=== PATIENT | male | born 1950 | race Caucasian/White ===

== ENCOUNTER → 2017-12-30 | Outpatient (CLI) | payer OTHER, BC | LOC: BHFA 11:00 | PROVIDERS: ATTEND Internal Medicine Cardiovascular Disease | DX: R07.9 Chest pain, unspecified (principal) ==

== ENCOUNTER 2018-01-17 06:33 | Observation (INO) | payer OTHER, BC ==
[2018-01-17] MEDS ORDERED: NS 1,000 ML IV ONE (06:41)
[2018-01-17] MEDS ORDERED: diphenhydrAMINE 25 MG CAP PO ONE ×2 (06:41→07:10)
[2018-01-17] MEDS ORDERED: DIAZEPAM 5 MG TAB PO ONE (06:41)
[2018-01-17] MEDS ORDERED: FAMOTIDINE 20 MG TAB PO ONE (06:41)
[2018-01-17] MEDS ORDERED: ASPIRIN EC 325 MG TAB PO ONE ×2 (06:41→07:10)
[2018-01-17] MEDS ORDERED: FAMOTIDINE 20 MG TAB ONE (07:10)
[2018-01-17] MEDS ORDERED: DIAZEPAM 5 MG TAB ONE (07:11)
[2018-01-17 07:36] LABS: PLATELET COUNT 222 10^3/uL (150-400)
[2018-01-17 07:44] LABS: INR 0.98 (0.83-1.16); PROTIME(PATIENT) 13.2 SEC (12.0-15.0)
[2018-01-17] MEDS ORDERED: LIDOCAINE 1% 300 MG/30 ML SDV ONE (08:07)
[2018-01-17] MEDS ORDERED: IOPAMIDOL (ISOVUE-370) 150 ML BTL IV ONE (08:08)
[2018-01-17] MEDS ORDERED: fentaNYL 100 MCG/2 ML INJ ONE ×2 (08:08→09:50)
[2018-01-17] MEDS ORDERED: MIDAZOLAM 2 MG/2 ML VIAL ONE ×2 (08:08→09:51)
--- NOTE | 2018-01-17 08:51 | PDPROPOC ---
Sedation Plan of Care Sedation Plan of Care: vital signs stable, mental status noted, patient educated of risks, benefits, alternatives, patient can tolerate sedation ASA Classification: ASA 2 Planned drugs: fentanyl, midazolam Mallampati Score: Class 2 Mallampati Reference Image: Patient passed 3-3-2 rule?: Yes
--- NOTE | 2018-01-17 08:52 | PDHPUP ---
History & Physical Update H&P update statement: This history and physical update is based on an assessment of the patient which was completed after admission or registration (within 24 hours), but prior to the surgery/procedure. H&P update: H&P reviewed & patient examined, no change in patient's condition since H&P completed
[2018-01-17] MEDS ORDERED: ADENOSINE 90 MG/30 ML VIAL IV ONE (09:22)
[2018-01-17] MEDS ORDERED: BIVALIRUDIN 250 MG/5 ML VIAL IV ONE (09:22)
[2018-01-17] MEDS ORDERED: CLOPIDOGREL BISULFATE 75 MG TAB ONE (09:45)
[2018-01-17] MEDS ORDERED: OXYCODONE/APAP 5/325 TAB PO PRN (10:09)
[2018-01-17] MEDS ORDERED: LORazepam 2 MG/ML INJ IVP PRN (10:09)
[2018-01-17] MEDS ORDERED: ATROPINE SULFATE 1 MG/10 ML SYR IVP PRN (10:09)
[2018-01-17] MEDS ORDERED: TEMAZEPAM 15 MG CAP PO PRN (10:09)
[2018-01-17] MEDS ORDERED: HYDROCODONE/APAP 5/325 TAB PO PRN (10:09)
[2018-01-17] MEDS ORDERED: ONDANSETRON 4 MG/2 ML VIAL IVP PRN (10:09)
[2018-01-17] MEDS ORDERED: CLOPIDOGREL BISULFATE 75 MG TAB PO ONE (10:09)
[2018-01-17] MEDS ORDERED: NITROGLYCERIN 0.4 MG BTL SL PRN (10:09)
--- NOTE | 2018-01-17 10:42 | CPIP ---
DATE OF PROCEDURE: 01/17/2018 INDICATION FOR PROCEDURE: Positive stress test, chest pain. PROCEDURES: 1. Left coronary artery selective angiography. 2. Percutaneous coronary intervention of mid left anterior descending utilizing Synergy 3.0 x 28 mm drug-eluting stent. 3. Right groin closure with 6-Montenegrin Angio-Seal. HISTORY: Briefly, this is a 67-year-old male who had a history of recent worsening chest pain, under went stress testing, which was positive for ST depressions, as well as chest pain. Patient underwent diagnostic catheterization by Dr. Henry Delgado. Please refer to Dr. Delgado's note for full delineation of underlying coronary anatomy. Briefly, the patient was found to have high-grade 70% to 80% mid LAD disease with significant disease of a tiny diagonal artery coming off the diseased area of the LAD. Given the size, we decided proce ed with PCI of this area. DESCRIPTION OF PROCEDURE: Informed consent was obtained and utilizing the same 6-Montenegrin sheath in th e right common femoral artery, EBU 3.5 guide was advanced to left coronary artery. The patient was s tarted on Angiomax bolus drip and administered 600 Plavix p.o. A Choice PT wire was placed down the LAD. PTCA commenced of the mid LAD with a 2.5 x 20 mm balloon at 2 sequential inflations of 12 atmospheres . After this was performed, angiogram was obtained, which showed improved patency of this area. We decided to proceed with stenting of this vessel with a 3.0 x 28 mm Synergy drug-eluting stent. This was deployed successfully at 18 atmospheres. Post-deployment, there was excellent apposition visuali zed on orthogonal views. The wire was pulled back. The guide catheter was then removed. The right groin was then closed with 6-Montenegrin Angio-Seal. The patient tolerated the procedure well with no com plications. IMPRESSION: Successful percutaneous coronary intervention of high-grade mid-left anterior descending disease utilizing Synergy drug-eluting stent x1. PLAN: The patient will be admitted to observation. Plavix, aspirin to be continued for at least 6 m onths' time. Further orders following clinical course. /[id number]/MODL
--- NOTE | 2018-01-17 16:41 | CPEKG ---
Test Reason : OPEN Blood Pressure : / mmHG Vent. Rate : 069 BPM Atrial Rate : 069 BPM P-R Int : 141 ms QRS Dur : 103 ms QT Int : 407 ms P-R-T Axes : 053 070 058 degrees QTc Int : 436 ms Sinus rhythm Confirmed by Rodolfo Felix ([id number]) on 01/17/2018 4:40:42 PM Referred By: Confirmed By:Rodolfo Felix
--- NOTE | 2018-01-17 16:55 | CPEKG ---
Test Reason : OPEN Blood Pressure : / mmHG Vent. Rate : 064 BPM Atrial Rate : 066 BPM P-R Int : 152 ms QRS Dur : 106 ms QT Int : 435 ms P-R-T Axes : 038 055 028 degrees QTc Int : 449 ms Sinus rhythm Confirmed by Rodolfo Felix ([id number]) on 01/17/2018 4:55:40 PM Referred By: Confirmed By:Rodolfo Felix
[2018-01-17] MEDS ORDERED: ATORVASTATIN CALCIUM 20 MG TAB PO SCH (21:00)
[2018-01-17] MEDS ORDERED: BENAZEPRIL HCL 20 MG TAB PO SCH (21:00)
[2018-01-17] MEDS ORDERED: TAMSULOSIN HCL 0.4 MG CAP PO SCH (21:00)
[2018-01-18 04:12] LABS: PLATELET COUNT 208 10^3/uL (150-400)
--- NOTE | 2018-01-18 06:58 | PDCARPN ---
Cardiology Progress Note Chief Complaint: CP Assessment/Plan: Assessment: CP s/p PCI to LAD Plan: 01/18/18 06:56 doing well d/c home plavix/ASA f/u in 1 week Subjective: doing well Reviewed/Discussed With: multidisciplinary team Time Spent with Patient: greater than 25 minutes Time Spent with Patient: Greater than 25 minutes spent on this patients care, greater than 50% of time spent counseling, educating, and coordinating care regarding the above mentioned plan. Objective: Vital Signs (8 Hrs) Temp Pulse Resp BP Pulse Ox 01/18/18 04:00 36.4 C 78 16 110/75 95 Intake/Output (24 Hrs) 01/17/18 01/18/18 01/19/18 05:59 05:59 05:59 Intake Total 1400 Balance 1400 Intake: Oral (ml) 650 IV Intake (ml) 750 Other: Weight 77.5 kg Number of Voids Toilet 2 Result Diagrams: 01/18/18 03:55 01/18/18 03:55 - Physical Exam Constitutional: healthy appearing Eyes: PERRL Ears, Nose, Mouth, Throat: moist mucous membranes Cardiovascular: regular rate and rhythm Peripheral Pulses: 1+: femoral (R), femoral (L) Respiratory: clear to auscultate bilat Gastrointestinal: normoactive bowel sounds Genitourinary: no suprapubic tenderness Skin: no rashes Musculoskeletal: no muscular tenderness Neurologic: AAOx3 Psychiatric: cooperative ICD10 Worksheet Patient Problems: Problems Problem Status Onset CAD (coronary artery disease) Acute - ICD10 Problem Qualifiers (1) CAD (coronary artery disease) Qualifiers: Coronary Disease-Associated Artery/Lesion type: [place] artery Associated angina: with stable angina
--- NOTE | 2018-01-18 07:17 | GDS ---
DISCHARGE DIAGNOSIS: Coronary artery disease. HOSPITAL COURSE: This is a 67-year-old male who is a patient of Dr. Henry Delgado. The patient had out patient chest pain, and underwent stress testing which was positive. The patient underwent diagnosti c catheterization, which showed high-grade 70% to 80% mid LAD disease. Patient had successful Synerg y drug-eluting stent placement to the mid LAD. Post procedure, the patient has done quite well. Den ies any chest pain or shortness of breath. The patient will be discharged home this morning with his home medications, including aspirin and Plavix. He will follow up in the office in 1 week's time. /[id number]/MODL
[2018-01-18 07:53] VITALS: BP 118/71
[2018-01-18] MEDS ORDERED: ASPIRIN 81 MG CHEWABLE TAB PO SCH (09:00)
[2018-01-18] MEDS ORDERED: CLOPIDOGREL BISULFATE 75 MG TAB PO SCH (09:00)
[2018-01-18] MEDS ORDERED: ASPIRIN 325 MG TAB PO SCH (09:00)
[2018-01-18] MEDS ORDERED: MULTIVITAMINS 1 EACH TAB PO SCH (09:00)
--- NOTE | 2018-01-18 10:02 | PDCARPN ---
Cardiology Progress Note Chief Complaint: chest pain Assessment/Plan: Assessment: 1. Chest pain this am: STAT ECG and Limited echo to eval LVEF 2. S/P PCI to Prox to mid LAD yesterday Plan: -STAT ECG -STAT Limited Echo -Continue current medications 01/18/18 09:59 Subjective: Mr. Silva underwent successful PCI to prox to mid LAD yesterday. He tolerated the procedure well. He describes some Left sided aching chest discomfort with no other associated symptoms. Reviewed/Discussed With: family, multidisciplinary team Objective: Vital Signs (8 Hrs) Temp Pulse Resp BP Pulse Ox 01/18/18 07:53 36.9 C 90 13 118/71 96 01/18/18 04:00 36.4 C 78 16 110/75 95 Intake/Output (24 Hrs) 01/17/18 01/18/18 01/19/18 05:59 05:59 05:59 Intake Total 1400 Balance 1400 Intake: Oral (ml) 650 IV Intake (ml) 750 Other: Weight 77.5 kg Number of Voids Toilet 2 Result Diagrams: 01/18/18 03:55 01/18/18 03:55 - Physical Exam Ears, Nose, Mouth, Throat: moist mucous membranes Cardiovascular: regular rate and rhythm, no murmurs, no rubs, no gallops Respiratory: clear to auscultate bilat Skin: no rashes Neurologic: AAOx3, CN II-XII grossly intact Psychiatric: cooperative, interactive, following commands ICD10 Worksheet Patient Problems: Problems Problem Status Onset CAD (coronary artery disease) Acute
--- NOTE | 2018-01-18 10:13 | CPIP ---
DATE OF PROCEDURE: 01/17/2018 PROCEDURE PERFORMED: Diagnostic left heart catheterization. INDICATION FOR PROCEDURE: Patient with exertional chest pain coupled with abnormal exercise treadmil l stress test with ST-segment depression, as well as exertional chest pain on standard Kenny protocol . Patient also has multiple cardiac risk factors. DESCRIPTION OF PROCEDURE: After informed consent was obtained for cardiac catheterization, patient w as brought to the cardiac catheterization lab where he was prepped and draped in sterile fashion. Us ing 1% lidocaine, the right groin was anesthetized. Using the micropuncture modified Seldinger technique, a 6-Gambian catheter was placed in the right com mon femoral artery without complications. JL4 catheter was used to take images of the left coronary anatomy in multiple projections. The JL4 catheter was exchanged over a guidewire for a JR4 catheter. JR4 catheter was used to take images of the right coronary anatomy in multiple projections. JR4 ca theter was exchanged over a guidewire. Of note, left ventriculogram was not performed in the setting of known history of mild renal insufficiency. FINDINGS: 1. Left main normal size and caliber, bifurcates into left anterior descending and left circumflex c oronary artery. There is no evidence of coronary disease within the left main. 2. Left anterior descending artery is a large vessel that wraps around the left ventricular apex. T here is a 70% to 80% proximal to mid long tubular stenosis that begins at the level of first septal p erforator. There are mild luminal irregularities in the distal vessel. 3. The circumflex vessel demonstrates mild luminal irregularities with no flow-limiting stenosis. 4. Right coronary artery demonstrates mild luminal irregularities. This is a dominant vessel. It b ranches into PDA and PLV. CONCLUSIONS: 1. Severe single-vessel disease of the proximal mid left anterior descending. 2. Recommend percutaneous coronary intervention. I have reviewed films with my interventional colle ague, Dr. Medina, who planned with percutaneous coronary intervention to the proximal to mid left an terior descending. /[id number]/MODL
--- NOTE | 2018-01-18 11:00 | ECHO ---
[email or web address] [address] Main: [phone] Fax: Transthoracic Echocardiogram Name: RAJANI SAMUEL MR#: [id number] Study Date: 01/18/2018 Study Time: 10:30 AM Date of : 1950 Age: 67 year(s) Height: 172.7 cm (68 in.) Weight: 77.11 kg (170 lb.) BSA: 1.91 m2 Gender: Male Examination: Limited Echo Indication: Chest Pain Image Quality: Adequate Contrast: Requested by: Henry Delgado BP: 118 mmHg/68 mmHg Heart Rate: Rhythm: Indication: Chest Pain Procedure Staff Belt Weaver: Yodit Barajas [facility] Reading Physician: Henry Delgado MD Requesting Provider: Conclusions: Normal size left ventricle. Normal global systolic LV function. The ejection fraction is visually estimated to be 60 %. No regional wall motion abnormality. Normal RV function. No pericardial effusion. Measurements: Chambers Valvular Assessment AV/MV Valvular Assessment TV/PV Normal Normal Normal Name Value Range Name Value Range Name Value Range LVEF (BP): 63 % (>=55 %) Visual EF: 60 % Continued Measurements: Findings: Left Ventricle: Normal size left ventricle. Normal global systolic LV function. The ejection fraction is visually estimated to be 60 %. No regional wall motion abnormality. Right Ventricle: Normal size right ventricle. Normal RV function. Left Atrium: The left atrium is normal in size. Right Atrium: The right atrium is normal in size. Mitral Valve: The mitral valve is normal in appearance and function. Mild mitral valve regurgitation is present. No Patient: RAJANI SAMUEL Study Date: 01/18/2018 Page 1 of 2 10:30 AM mitral stenosis is present. Aortic Valve: The aortic valve is tri-leaflet. Aortic sclerosis is present. There is no significant aortic valve regurgitation. Tricuspid Valve: The tricuspid valve is normal in appearance and function. Trivial tricuspid valve regurgitation. Pulmonic Valve: The pulmonic valve is normal in appearance and function. Pericardium: No pericardial effusion. (No Signature Object) Patient: RAJANI SAMUEL Study Date: 01/18/2018 Page 2 of 2 10:30 AM [id number]
--- NOTE | 2018-01-18 12:36 | ASDISCHSUM ---
Discharge Information Plan Status:Home with No Needs Medically Cleared to Leave:01/18/2018 Discharge Date:01/18/2018 11:40 AM CM D/C Disposition:Home, Routine, Self-Care ADT D/C Disposition:Home, Routine, Self-Care Projected Discharge Date:01/18/2018 11:40 AM Transportation at D/C: Discharge Delay Reason: Follow-Up Date:01/18/2018 11:40 AM Discharge Slot: Final Diagnosis: Placement Information Patient Contact Information Contact Name:CHARI Relationship: Address:[address] [place] [address] Work Phone: City:[place] [facility] Phone: [facility]/Zip Code:[place] [address] Email: Financial Information Financial Class:Medicare Primary Plan Desc:MEDICARE OUTPATIENT Primary Plan Number:[id number] Secondary Plan Desc: OUT OF [facility] Secondary Plan Number:[id number] Assessment Information LACE LACE Length of stay for Answers: 1 day current admission Acuity / Level of Answers: No Care: Did the patient have an inpatient admission? Comorbidities - select Answers: Coronary Artery Disease all that apply Mild liver or renal disease Other Notes: Pre-diabetic; BPH # of Emergency department Answers: 0 visits in the last 6 months Score: 6 Date Signed: 01/18/2018 12:35 PM Electronically Signed By:Kathie Moses RN Intervention Information
--- NOTE | 2018-01-20 09:03 | CPEKG ---
Test Reason : OPEN Blood Pressure : / mmHG Vent. Rate : 087 BPM Atrial Rate : 087 BPM P-R Int : 138 ms QRS Dur : 101 ms QT Int : 365 ms P-R-T Axes : 043 086 035 degrees QTc Int : 439 ms Sinus rhythm Borderline right axis deviation Confirmed by Rodolfo Felix ([id number]) on 01/20/2018 9:03:07 AM Referred By: Confirmed By:Rodolfo Felix
--- NOTE | 2018-01-20 09:20 | CPEKG ---
Test Reason : OPEN Blood Pressure : / mmHG Vent. Rate : 084 BPM Atrial Rate : 083 BPM P-R Int : 134 ms QRS Dur : 099 ms QT Int : 367 ms P-R-T Axes : 053 087 042 degrees QTc Int : 434 ms Sinus rhythm Borderline right axis deviation Confirmed by Rodolfo Felix ([id number]) on 01/20/2018 9:19:45 AM Referred By: Confirmed By:Rodolfo Felix
== END 2018-01-18 11:40 | disposition home or self-care (01) ==
LOC: FCATH 06:33 → F2W 10:09
PROVIDERS: ADMIT Internal Medicine Cardiovascular Disease; ATTEND Internal Medicine Cardiovascular Disease
PROC: 027034Z Dilation of Coronary Artery, One Artery with Drug-eluting Intraluminal Device, Percutaneous Approach (ICD-10-PCS; principal; 2018-01-17)
PROC: B2151ZZ Fluoroscopy of Left Heart using Low Osmolar Contrast (ICD-10-PCS; 2018-01-17)
PROC: 4A023N7 Measurement of Cardiac Sampling and Pressure, Left Heart, Percutaneous Approach (ICD-10-PCS; 2018-01-17)
PROC: B2111ZZ Fluoroscopy of Multiple Coronary Arteries using Low Osmolar Contrast (ICD-10-PCS; 2018-01-17)
DX: I25.10 Atherosclerotic heart disease of native coronary artery without angina pectoris (principal)
CPT/HCPCS: 90686; 92928; 93005; 93308; 93454; C1725; C1760; C1769; C1874; C1887; C9600; G0008; G0378; J0583; J1644; J2250; J3010; Q9967; J0153

== ENCOUNTER → 2018-02-09 | Outpatient (CLI) | payer OTHER, BC | LOC: FIMAGING 14:00 | PROVIDERS: ATTEND Internal Medicine Cardiovascular Disease | DX: J98.09 Other diseases of bronchus, not elsewhere classified (principal) ==

== ENCOUNTER 2018-07-03 11:58 | Emergency (ER) | payer OTHER, BC ==
[2018-07-03] MEDS ORDERED: NS 1,000 ML IV ONE (12:31)
--- NOTE | 2018-07-03 12:31 | EDPHY ---
H & P Stated Complaint: subtle neuro symptoms for 6 weeks increased l eye floaters yesterday Time Seen by Provider: 07/03/18 12:19 HPI/ROS: CHIEF COMPLAINT: Headache, word-finding difficulty, floaters HISTORY OF PRESENT ILLNESS: Patient is a 67-year-old man with a history of hypertension and a single cardiac stent on Plavix. He reports having 60 a weeks worth of intermittent headaches and difficulty with word finding. Then starting on Tuesday he noticed having floaters and cobwebs in his left eye. He does have an human services professional. His made an appointment with Ophthalmology on Tuesday but decided to come here today. He is not currently having headache or trouble with word finding. He is worried about TIA or masses. He wears glasses and is vision is currently a baseline other than having the floaters and cobwebs.. No eye pain. No erythema or discharge. Severity: Moderate Modifying factors: None REVIEW OF SYSTEMS: Constitutional: denies: chills, fever, recent illness, recent injury EENTM: See HPI Respiratory: denies: cough, shortness of breath Cardiac: denies: chest pain, irregular heart rate, lightheadedness, palpitations Gastrointestinal/Abdominal: denies: abdominal pain, diarrhea, nausea, vomiting, blood streaked stools Genitourinary: denies: dysuria, frequency, hematuria, pain Musculoskeletal: denies: joint pain, muscle pain Skin: denies: lesions, rash, jaundice, bruising Neurological: denies: headache, numbness, paresthesia, tingling, dizziness, weakness Hematologic/Lymphatic: denies: blood clots, easy bleeding, easy bruising Immunologic/allergic: denies: HIV/AIDS, transplant 10 systems reviewed and negative except as noted EXAM: GENERAL: Well-appearing, well-nourished and in no acute distress. HEAD: Atraumatic, normocephalic. EYES: Pupils equal round and reactive to light, extraocular movements intact, sclera anicteric, conjunctiva are normal. Examined with ultrasound. Left retina does appear to have some slight vitreal detachment. No visible hemorrhage. Right eye 20/20, left eye 20/25. Haseeb-Pen measurement of 9. ENT: TMs normal, nares patent, oropharynx clear without exudates. Moist mucous membranes. NECK: Normal range of motion, supple without lymphadenopathy or JVD. LUNGS: Breath sounds clear to auscultation bilaterally and equal. No wheezes rales or rhonchi. HEART: Regular rate and rhythm without murmurs, rubs or gallops. ABDOMEN: Soft, nontender, normoactive bowel sounds. No guarding, no rebound. No masses appreciated. BACK: No CVA tenderness, no spinal tenderness, step-offs or deformities EXTREMITIES: Normal range of motion, no pitting or edema. No clubbing or cyanosis. NEUROLOGICAL: Cranial nerves II through XII grossly intact. Normal speech, normal gait. 5/5 strength, normal movement in all extremities, normal sensation , normal reflexes PSYCH: Normal mood, normal affect. SKIN: Warm, dry, normal turgor, no visible rashes or lesions. Source: Patient Exam Limitations: No limitations - Personal History Current Tetanus Diphtheria and Acellular Pertussis (TDAP): Yes - Medical/Surgical History Hx Asthma: No Hx Chronic Respiratory Disease: No Hx Diabetes: No Hx Cardiac Disease: Yes Hx Renal Disease: Yes Hx Cirrhosis: No Hx Alcoholism: No Hx HIV/AIDS: No Hx Splenectomy or Spleen Trauma: No Other PMH: pre diabetic, bph, hyperlipidemia, cardiac stent - Family History Significant Family History: No pertinent family hx - Social History Smoking Status: Never smoked Alcohol Use: None Constitutional: Initial Vital Signs Temperature (C) 37.6 C 07/03/18 12:05 Heart Rate 88 07/03/18 12:05 Respiratory Rate 18 07/03/18 12:05 Blood Pressure 137/60 H 07/03/18 12:05 O2 Sat (%) 97 07/03/18 12:05 O2 Delivery Mode Room Air Allergies/Adverse Reactions: No Known Allergies Allergy (Verified 07/03/18 12:03) Home Medications: Medication Instructions Recorded Aspirin [Aspirin 81mg (*)] 81 mg PO HS 01/17/18 Multivitamins [Multivitamin (*)] 1 each PO DAILY 01/17/18 Tamsulosin HCl [Flomax 0.4 MG (*)] 0.4 mg PO HS 01/17/18 amLODIPine BESYLATE/BENAZEPRIL 1 each PO HS 01/17/18 [Lotrel 10-40 mg Capsule] Clopidogrel Bisulfate [Plavix (*)] 75 mg PO DAILY #30 tab 01/18/18 Atorvastatin Calcium 07/03/18 Medical Decision Making - Diagnostics EKG Interpretation: An EKG obtained and was read and documented in trace view. Please see trace view for full reading and report. Sinus rhythm, no acute ischemic changes Imaging Results: Imaging Impressions Brain MRI 07/03/18 12:32 Impression: Negative MRI of the brain without contrast. Results called to Dr. Steve Stoner at 2:30 PM Carotid Doppler Study 07/03/18 12:32 Impression: No hemodynamically significant stenosis by systolic velocity criteria. Measurement of carotid stenosis is based on velocity parameters that correlate the residual internal carotid diameter with [place] Symptomatic Carotid Endarterectomy Trial (NASCET) based stenosis levels. Findings discussed with STEVE STONER 07/03/2018 at 13:50. Imaging: Discussed imaging studies w/ labelling machine operator Radiologist ED Course/Re-evaluation: The patient appears to have vitreous detachment was/right not consistent with his symptoms. He has an appointment with his human services professional in 2 days. His human services professional is in [place]. He also however complains of intermittent headaches and trouble with word finding. He is not having the symptoms now. He would like to be worked up for TIA. I have ordered an MRI and carotid Dopplers. 2:30 p.m. We discussed the imaging results which are very reassuring. The patient is currently asymptomatic. He will follow up with Ophthalmology on Tuesday. I will refer him to Neurology as well for possible TIAs. He a and his understand agree with this plan. He is already taking aspirin and Plavix. I encouraged him to continue these. Differential Diagnosis: Partial list of the Differential diagnosis considered include but were not limited to; vitreous detachment, TIA, anxiety and although unlikely based on the history and physical exam, I also considered infection, tumor, seizure. - Data Points Laboratory Results: Laboratory Results 07/03/18 12:50 07/03/18 12:50 07/03/18 07/03/18 07/03/18 12:53 12:50 12:50 WBC 8.49 10^3/uL 10^3/uL (3.80-9.50) RBC 5.36 10^6/uL 10^6/uL (4.40-6.38) Hgb 14.6 g/dL g/dL (13.7-17.5) Hct 45.4 % % (40.0-51.0) MCV 84.7 fL fL (81.5-99.8) MCH 27.2 pg L pg (27.9-34.1) MCHC 32.2 g/dL L g/dL (32.4-36.7) RDW 13.7 % % (11.5-15.2) Plt Count 206 10^3/uL 10^3/uL (150-400) MPV 9.7 fL fL (8.7-11.7) Neut % (Auto) 83.2 % H % (39.3-74.2) Lymph % (Auto) 9.2 % L % (15.0-45.0) [place] % (Auto) 6.5 % % (4.5-13.0) Eos % (Auto) 0.2 % L % (0.6-7.6) Baso % (Auto) 0.4 % % (0.3-1.7) Nucleat RBC Rel Count 0.0 % % (0.0-0.2) Absolute Neuts (auto) 7.07 10^3/uL H 10^3/uL (1.70-6.50) Absolute Lymphs (auto) 0.78 10^3/uL L 10^3/uL (1.00-3.00) Absolute Monos (auto) 0.55 10^3/uL 10^3/uL (0.30-0.80) Absolute Eos (auto) 0.02 10^3/uL L 10^3/uL (0.03-0.40) Absolute Basos (auto) 0.03 10^3/uL 10^3/uL (0.02-0.10) Absolute Nucleated RBC 0.00 10^3/uL 10^3/uL (0-0.01) Immature Gran % 0.5 % % (0.0-1.1) Immature Gran # 0.04 10^3/uL 10^3/uL (0.00-0.10) Sodium 139 mEq/L mEq/L (135-145) Potassium 4.6 mEq/L mEq/L (3.5-5.2) Chloride 106 mEq/L mEq/L (97-110) Carbon Dioxide 22 mEq/l mEq/l (22-31) Anion Gap 11 mEq/L mEq/L (6-14) BUN 21 mg/dL mg/dL (7-23) Creatinine 1.3 mg/dL mg/dL (0.7-1.3) Estimated GFR 55 Glucose 125 mg/dL H mg/dL (70-100) Calcium 9.7 mg/dL mg/dL (8.5-10.4) POC Troponin I 0.00 ng/mL ng/mL (0.00-0.08) Medications Given: Discontinued Medications Sodium Chloride (Ns) 1,000 mls @ 0 mls/hr IV ONCE ONE; Wide Open PRN Reason: Protocol Stop: 07/03/18 12:32 Last Admin: 07/03/18 12:53 Dose: 1,000 mls Point of Care Test Results: Chemistry 07/03/18 12:53 POC Troponin I 0.00 ng/mL ng/mL (0.00-0.08) Departure - Departure Disposition: Home, Routine, Self-Care Clinical Impression: Vitreous detachment of left eye Condition: Fair Instructions: Visual Floaters (ED) Additional Instructions: Follow-up with the human services professional on Tuesday as planned. Referrals: Ludy Leon MD [Primary Care Provider] - As per Instructions Pablo Bolden MD [Medical Doctor] - As per Instructions
[2018-07-03 13:01] LABS: PLATELET COUNT 206 10^3/uL (150-400)
--- NOTE | 2018-07-03 14:01 | CPEKG ---
Test Reason : OPEN Blood Pressure : / mmHG Vent. Rate : 069 BPM Atrial Rate : 069 BPM P-R Int : 150 ms QRS Dur : 102 ms QT Int : 404 ms P-R-T Axes : 047 023 039 degrees QTc Int : 433 ms Sinus rhythm Confirmed by Steve Toth ([id number]) on 07/03/2018 2:01:36 PM Referred By: Steve Toth Confirmed By:Steve Toth
[2018-07-03 14:46] VITALS: BP 134/63
== END 2018-07-03 14:45 | disposition home or self-care (01) ==
DX: R51 Headache (principal); R47.9 Unspecified speech disturbances; H43.812 Vitreous degeneration, left eye; I10 Essential (primary) hypertension; R73.03 Prediabetes; E86.9 Volume depletion, unspecified
CPT/HCPCS: 70551-PN; 84484-ER

== ENCOUNTER → 2018-07-26 | Outpatient (CLI) | payer OTHER, BC | LOC: BHFA 09:30 | PROVIDERS: ATTEND Internal Medicine Cardiovascular Disease | DX: R07.9 Chest pain, unspecified (principal); I25.10 Atherosclerotic heart disease of native coronary artery without angina pectoris | CPT/HCPCS: 78452; 93017; A9500 ==